=== PATIENT | male | born 1990 | race Hispanic/Latino ===

== ENCOUNTER 2017-09-15 21:20 | Emergency (ER) | payer OTHER, SELFPAY ==
[~2017-09-15] VITALS: Ht 175.3 cm; Wt 102.3 kg
[2017-09-15 21:20] VITALS: BP 146/100
[2017-09-15] MEDS ORDERED: traMADol 50 MG TAB PO ONE (22:00)
[2017-09-15] MEDS ORDERED: NORCOTAB PO (22:35)
[2017-09-15] MEDS ORDERED: NORCO 5/325MG TABLET (BULK FOR ED) PO ONE (22:45)
--- NOTE | 2017-09-16 07:46 | REP ---
Left hand four views : There is no fracture or dislocation. Mineralization and joint spaces are normal. There are no calcifications or foreign bodies. Impression: Negative left hand . Signed by James Guajardo MD 09/16/2017 07:38 A
--- NOTE | 2017-09-16 07:46 | REP ---
Left wrist four views : There is no fracture or dislocation. Mineralization and joint spaces are normal. There are no calcifications or foreign bodies. Impression: Negative left wrist . Signed by James Guajardo MD 09/16/2017 07:37 A
--- NOTE | 2017-09-16 07:47 | REP ---
Left forearm two views : There is no fracture or dislocation. Mineralization and joint spaces are normal. There are no calcifications or foreign bodies. Impression: Negative left forearm no . Signed by James Guajardo MD 09/16/2017 07:38 A
== END 2017-09-15 22:47 | disposition home or self-care (01) ==
LOC: M ED 21:20
DX: S60.222A Contusion of left hand, initial encounter (principal); W00.0XXA Fall on same level due to ice and snow, initial encounter; Y92.89 Other specified places as the place of occurrence of the external cause; Y93.89 Activity, other specified; Y99.0 Civilian activity done for income or pay; J45.909 Unspecified asthma, uncomplicated; F41.9 Anxiety disorder, unspecified; F33.9 Major depressive disorder, recurrent, unspecified; F17.210 Nicotine dependence, cigarettes, uncomplicated